=== PATIENT | female | born 1955 | race African-American/Black ===

== ENCOUNTER → 2017-01-20 | Outpatient (CLI) | payer OTHER ==
[2017-01-20 12:51] LABS: ABSOLUTE EOSINOPHILS # (AUTO) 0.1 10^3/uL (0.0-0.6); ABSOLUTE LYMPHOCYTES (AUTO) 1.5 10^3/uL (0.5-4.7); ABSOLUTE MONOCYTES (AUTO) 0.2 10^3/uL (0.1-1.4); ABSOLUTE NEUT (AUTO) 1.6 10^3/uL (1.7-8.2); BASOPHILS % (AUTO) 0.6 % (0-2); EOSINOPHILS % (AUTO) 2.7 % (0-6); LYMPHOCYTES % (AUTO) 43.7 % (13-45); MEAN CORPUSCULAR HEMOGLOBIN 32.5 pg (27.0-33.4); MEAN CORPUSCULAR HGB CONC 32.5 g/dL (32.0-36.0); MEAN CORPUSCULAR VOLUME 100 fl (80-97); MONOCYTES % (AUTO) 5.6 % (3-13); RED CELL DISTRIBUTION WIDTH 14.7 % (11.5-14.0); SEGMENTED NEUTROPHILS % (AUTO) 47.4 % (42-78); WHITE BLOOD COUNT 3.4 10^3/uL (4.0-10.5)
[2017-01-20 13:19] LABS: ALANINE AMINOTRANSFERASE 28 U/L (9-52); ALBUMIN 4.6 g/dL (3.5-5.0); ALKALINE PHOSPHATASE 131 U/L (38-126); ANION GAP 13 (5-19); ASPARTATE AMINO TRANSFERASE 45 U/L (14-36); BILIRUBIN,DIRECT 0.3 mg/dL (0.0-0.4); BILIRUBIN,TOTAL 0.4 mg/dL (0.2-1.3); BLOOD UREA NITROGEN 11 mg/dL (7-20); CARBON DIOXIDE 25 mmol/L (22-30); CHLORIDE 106 mmol/L (98-107); CHOLESTEROL 235.13 mg/dL (0-200); CREATININE RESULT 0.64 mg/dL (0.52-1.25); Direct HDL 108 mg/dL (>40); GLUCOSE 93 mg/dL (75-110); POTASSIUM 4.1 mmol/L (3.6-5.0); SODIUM 143.8 mmol/L (137-145); TOTAL PROTEIN 8.6 g/dL (6.3-8.2); TRIGLYCERIDES 146 mg/dL (<150)
[2017-01-20 13:30] LABS: DIRECT LDL 89 mg/dL (<100)
[2017-01-21 10:38] LABS: HEPATITIS C VIRUS AB <0.1 s/co ratio (0.0-0.9)
[2017-01-21 12:21] LABS: B-TYPE NATRIURETIC PEPTIDE 89.9 pg/mL (0.0-100.0)
== END ==
LOC: OD 11:34
DX: M10.9 Gout, unspecified (principal); R79.89 Other specified abnormal findings of blood chemistry; D64.9 Anemia, unspecified
CPT/HCPCS: 36415; 80053; 80061; 82607; 82746; 83036; 83880; 84443; 85025; 86317; 86708; 86709; 86803; 86804; 87340

== ENCOUNTER → 2017-06-05 | Outpatient (CLI) | payer OTHER ==
--- NOTE | 2017-06-05 14:55 | RADIOLOGY REPORT (SQ) ---
EXAM DESCRIPTION: UPPER GI/SM BOWEL COMPLETED DATE/TIME: 06/05/2017 10:33 am REASON FOR STUDY: ANOREXIA (R63.0) WITH WEIGHT LOSS (N63.4) R63.0 ANOREXIA R63.4 ABNORMAL WEIGHT L OSS COMPARISON: CT abdomen pelvis 01/14/2013 TECHNIQUE: Under fluoroscopic guidance, patient ingested effervescent granules followed by thick an d thin barium. Fluoroscopic spot images and routine radiographic images acquired and stored on PACS . Following evaluation of esophagus and stomach, additional barium administered with serial delayed ab dominal radiographs until colonic identification. Fluoroscopic images recorded of the terminal ileu m. 12 MM BARIUM TABLET GIVEN: Yes. No significant delay in passage. FLUOROSCOPY TIME: 3.3 minutes 17 fluoroscopic digital images saved to PACS. LIMITATIONS: None. FINDINGS: NEUROMUSCULAR COORDINATION OF SWALLOW: Normal. No aspiration. ESOPHAGEAL MOTILITY: Normal peristalsis. No esophageal spasm. ESOPHAGEAL MUCOSA: Normal mucosa without masses or ulceration. GASTRO-ESOPHAGEAL JUNCTION: No hiatal hernia or reflux. STOMACH: Normal without masses or ulcerations. GASTRIC OUTLET: No delay in emptying. Normal pylorus. DUODENAL BULB: Normal distention. No spasm or ulceration. DUODENUM: Mucosa normal. No extrinsic masses or malrotation. PROXIMAL SMALL BOWEL: Normal as visualized. JEJUNUM: Normal mucosal pattern. No dilatation, segmentation, strictures or masses. ILEUM: Normal mucosal pattern. No dilatation, segmentation, strictures or masses. TERMINAL ILEUM AND ILEO-CECAL VALVE: Normal mucosal pattern without cobble-stoning or stricture. Nor mal compression. PROXIMAL COLON: Incompletely imaged. No abnormality. NON-GI TRACT STRUCTURES: No significant finding. OTHER: No other significant finding. IMPRESSION: NORMAL DOUBLE CONTRAST BARIUM SWALLOW/UPPER GI SERIES/SMALL BOWEL SERIES. COMMENT: Quality ID [id number]: Final reports for procedures using fluoroscopy that document radiation exp osure indices, or exposure time and number of fluorographic images (if radiation exposure indices are not available) TECHNICAL DOCUMENTATION: JOB ID: [id number] [employer]- All Rights Reserved
== END ==
LOC: RAD 08:10
DX: R63.0 Anorexia (principal); R63.4 Abnormal weight loss
CPT/HCPCS: 74249

== ENCOUNTER → 2017-08-10 | Outpatient (CLI) | payer OTHER ==
--- NOTE | 2017-08-10 10:50 | RADIOLOGY REPORT (SQ) ---
EXAM DESCRIPTION: CT ABD/PELVIS ORAL ONLY COMPLETED DATE/TIME: 08/10/2017 9:17 am REASON FOR STUDY: ANOREXIA/R UPPER ABD PAIN R63.0 ANOREXIA R10.11 RIGHT UPPER QUADRANT PAIN F12.10 CANNABIS ABUSE, UNCOMPLICATED COMPARISON: CT abdomen pelvis 01/14/2013 TECHNIQUE: CT scan of the abdomen and pelvis performed without intravenous contrast. Patient drank oral contrast. Images reviewed with lung, soft tissue, and bone windows. Reconstructed coronal and sagittal MPR imag es reviewed. All images stored on PACS. All CT scanners at this facility use dose modulation, iterative reconstruction, and/or weight based d osing when appropriate to reduce radiation dose to as low as reasonably achievable (ALARA). [facility]: Dose Right [facility]: CareDose [facility]: Dose Right [facility]: Teradose 4D [facility]: Smart Technologies RADIATION DOSE: Up-to-date CT equipment and radiation dose reduction techniques were employed. CTDIv ol: 3.5 mGy. DLP: 180 mGy-cm.mGy. LIMITATIONS: None. FINDINGS: There is a thin rim of fluid between the liver and right hemidiaphragm, best shown on rand nal image 47 and axial images 16 through 24. There is a moderate amount of free cul-de-sac fluid. T his is a nonspecific finding. LOWER CHEST: No significant findings. No nodules or infiltrates. NON-CONTRASTED LIVER, SPLEEN, ADRENALS: Multiple hypodense liver lesions are present, similar compare to 2012 likely 1.9 cm hemangioma right lobe sub- diaphragmatic surface image 13, and hepatic cysts along the right lobe sub- diaphragmatic surface image 15, and left lobe liver near the falciform liga ment image 27. Spleen, adrenal glands unremarkable. PANCREAS: No masses. No peripancreatic inflammatory changes. GALLBLADDER: No identified stones by CT criteria. No inflammatory changes to suggest cholecystitis. RIGHT KIDNEY AND URETER: No suspicious masses. Assessment limited by lack of IV contrast. 12 mm cyst right lower pole kidney. No significant calcifications. No hydronephrosis or hydroureter. LEFT KIDNEY AND URETER: No suspicious masses. Assessment limited by lack of IV contrast. No signifi cant calcifications. No hydronephrosis or hydroureter. AORTA AND RETROPERITONEUM: No aneurysm. No retroperitoneal masses or adenopathy. BOWEL AND PERITONEAL CAVITY: No obvious masses or inflammatory changes. No free fluid. Patient drank oral contrast. No CT evidence of bowel obstruction. Few ascending colon diverticuli without CT sig ns of acute diverticulitis. APPENDIX: Normal. PELVIS, BLADDER, AND ABDOMINAL WALL:No abnormal masses. No free fluid. Bladder normal. Normal size u terus and ovaries. BONES: No significant findings. OTHER: No other significant finding. IMPRESSION: MRI of the right subphrenic fluid between the liver and diaphragm. Moderate amount of f ree cul-de-sac fluid. This is abnormal but nonspecific. No CT evidence of bowel obstruction. Ascending colon diverticuli without CT signs of diverticulitis. Normal appendix. COMMENT: Quality ID # [id number]: Final reports with documentation of one or more dose reduction techniques (e.g., Automated exposure control, adjustment of the mA and/or kV according to patient size, use of iterative reconstruction technique) TECHNICAL DOCUMENTATION: JOB ID: [id number] [employer]- All Rights Reserved
== END ==
LOC: RAD 09:00
DX: R63.0 Anorexia (principal); R10.11 Right upper quadrant pain; F12.10 Cannabis abuse, uncomplicated
CPT/HCPCS: 74176

== ENCOUNTER → 2017-09-22 | Outpatient (CLI) | payer OTHER ==
[2017-09-22 11:40] LABS: ABSOLUTE LYMPHOCYTES (AUTO) 1.6 10^3/uL (0.5-4.7); ABSOLUTE MONOCYTES (AUTO) 0.3 10^3/uL (0.1-1.4); ABSOLUTE NEUT (AUTO) 1.6 10^3/uL (1.7-8.2); BASOPHILS % (AUTO) 0.6 % (0-2); EOSINOPHILS % (AUTO) 1.3 % (0-6); HEMATOCRIT 34.4 % (36.0-47.0); HEMOGLOBIN 11.6 g/dL (12.0-15.5); HGB HCT DIFFERENCE 0.4; LYMPHOCYTES % (AUTO) 45.4 % (13-45); MEAN CORPUSCULAR HEMOGLOBIN 34.7 pg (27.0-33.4); MEAN CORPUSCULAR HGB CONC 33.6 g/dL (32.0-36.0); MEAN CORPUSCULAR VOLUME 103 fl (80-97); MONOCYTES % (AUTO) 7.2 % (3-13); RED BLOOD COUNT 3.33 10^6/uL (3.72-5.28); RED CELL DISTRIBUTION WIDTH 18.1 % (11.5-14.0); SEGMENTED NEUTROPHILS % (AUTO) 45.5 % (42-78); WHITE BLOOD COUNT 3.6 10^3/uL (4.0-10.5)
[2017-09-22 11:52] LABS: ALANINE AMINOTRANSFERASE 30 U/L (9-52); ALBUMIN 4.2 g/dL (3.5-5.0); ALKALINE PHOSPHATASE 132 U/L (38-126); ANION GAP 16 (5-19); ASPARTATE AMINO TRANSFERASE 46 U/L (14-36); BILIRUBIN,DIRECT 0.6 mg/dL (0.0-0.4); BILIRUBIN,TOTAL 0.6 mg/dL (0.2-1.3); BLOOD UREA NITROGEN 8 mg/dL (7-20); CALCIUM 9.3 mg/dL (8.4-10.2); CARBON DIOXIDE 22 mmol/L (22-30); CHLORIDE 109 mmol/L (98-107); CHOLESTEROL 223.54 mg/dL (0-200); CREATININE RESULT 0.71 mg/dL (0.52-1.25); Direct HDL 95 mg/dL (>40); GLUCOSE 91 mg/dL (75-110); POTASSIUM 4.3 mmol/L (3.6-5.0); SODIUM 147.1 mmol/L (137-145); TRIGLYCERIDES 197 mg/dL (<150)
[2017-09-22 12:02] LABS: DIRECT LDL 94 mg/dL (<100)
[2017-09-22 12:06] LABS: VLDL CHOLESTEROL 39.4 mg/dL (10-31)
== END ==
LOC: CCC 09:47
DX: R63.0 Anorexia (principal); R79.89 Other specified abnormal findings of blood chemistry
CPT/HCPCS: 36415; 80053; 80061; 83036; 84443; 85025

== ENCOUNTER → 2017-10-06 | Outpatient (CLI) | payer OTHER ==
[2017-10-06 11:58] LABS: FOLATE 6.32 ng/mL (>2.76)
== END ==
LOC: CCC 08:58
DX: D75.89 Other specified diseases of blood and blood-forming organs (principal)
CPT/HCPCS: 36415; 82607; 82746

== ENCOUNTER 2018-03-10 08:31 | Day surgery (SDC) | payer MEDICAID, OTHER ==
[~2018-03-10 08:31] MED LIST: DIPHENHYDRAMINE HCL 50 MG/ML VIAL ONE; EPINEPHRINE INJ 1 MG/10 ML DISP.SYRIN ONE; FENTANYL CITRATE INJ/PF 100 MCG/2 ML AMPUL ONE; FLUMAZENIL INJ 0.5 MG/5 ML VIAL ONE; GLUCAGON,HUMAN RECOMB 1 MG INJ ONE; NALOXONE HCL INJ/PF 0.4 MG/1 ML SDV ONE; ONDANSETRON HCL INJ/PF 4 MG/2 ML SDV ONE
[2018-03-10] MEDS: MIDAZOLAM 2 MG/2 ML INJ ONE ×2 (09:00→09:04)
--- NOTE | 2018-03-10 09:15 | Operative Report ---
Operative Report DATE OF SURGERY: 03/10/18 Operative Report: The risks benefits and alternatives of the procedure explained to the patient in detail and informed consent is obtained.A GIF Olympus video scope was inserted into the patient's mouth and hypopharynx, the esophagus is identified intubated and insufflated, the scope was then advanced through the esophagus stomach and duodenum, retroflexion maneuver is done, the esophagus stomach and first and second portions of the duodenum examined PREOPERATIVE DIAGNOSIS: Epigastric pain POSTOPERATIVE DIAGNOSIS: Gastritis status post biopsy. Esophagitis versus Cook's status post biopsy OPERATION: EGD with biopsy SURGEON: TAQUERIA BRINK ANESTHESIA: Moderate Sedation - 4 mg of Versed, 25 mcg of fentanyl. Conscious sedation monitoring time 30 minutes. TISSUE REMOVED OR ALTERED: As noted above. COMPLICATIONS: None. ESTIMATED BLOOD LOSS: None. INTRAOPERATIVE FINDINGS: As noted above. PROCEDURE: Patient tolerated procedure well. No immediate postprocedure complications are noted. Patient discharged in good condition. Discharge date 03/10/2018. Discharge diet: Regular. Discharge activity: Regular. 2-3 week follow-up to discuss findings. Patient is instructed to call the office or proceed to the emergency room should there be any further problems or questions.
[2018-03-10 10:14] VITALS: BP 102/63
== END 2018-03-10 10:55 | disposition home or self-care (01) ==
LOC: END 08:31
PROVIDERS: ATTEND Internal Medicine Gastroenterology
DX: K29.50 Unspecified chronic gastritis without bleeding (principal); K20.9 Esophagitis, unspecified; R32 Unspecified urinary incontinence; E78.00 Pure hypercholesterolemia, unspecified; M19.90 Unspecified osteoarthritis, unspecified site; Z79.899 Other long term (current) drug therapy; Z79.82 Long term (current) use of aspirin
CPT/HCPCS: 43239; 88342 ×2; 88305 ×2; J2250; J3010; J0171; J1200; J1610; J2310; J2405; J3490

== ENCOUNTER 2018-03-31 08:40 | Day surgery (SDC) | payer MEDICAID, OTHER ==
[~2018-03-31 08:40] MED LIST changes: -DIPHENHYDRAMINE HCL 50 MG/ML VIAL ONE; -EPINEPHRINE INJ 1 MG/10 ML DISP.SYRIN ONE; -FENTANYL CITRATE INJ/PF 100 MCG/2 ML AMPUL ONE; -FLUMAZENIL INJ 0.5 MG/5 ML VIAL ONE; -GLUCAGON,HUMAN RECOMB 1 MG INJ ONE; -NALOXONE HCL INJ/PF 0.4 MG/1 ML SDV ONE; -ONDANSETRON HCL INJ/PF 4 MG/2 ML SDV ONE; +PROPOFOL INJ 200 MG/20 ML VIAL IV ONE
[2018-03-31 10:21] VITALS: BP 159/80
--- NOTE | 2018-03-31 14:00 | Operative Report ---
Operative Report DATE OF SURGERY: 03/31/18 Operative Report: The risks benefits and alternatives of the procedure explained to the patient in detail and informed consent is obtained.A GIF Olympus video scope was inserted into the patient's mouth and hypopharynx, the esophagus is identified intubated and insufflated, the scope was then advanced through the esophagus stomach and duodenum, retroflexion maneuver is done, the esophagus stomach and first and second portions of the duodenum examined PREOPERATIVE DIAGNOSIS: Cook's esophagus POSTOPERATIVE DIAGNOSIS: Cook's esophagus status post ablation OPERATION: EGD with ablation SURGEON: TAQUERIA BRINK ANESTHESIA: LMAC TISSUE REMOVED OR ALTERED: None. COMPLICATIONS: None. ESTIMATED BLOOD LOSS: None. INTRAOPERATIVE FINDINGS: As noted above. PROCEDURE: Patient tolerated the procedure well. No immediate postprocedure complications are noted. Patient is discharged in good condition. Discharge date 03/31/2018. Discharge diet: Regular. Discharge activity: Regular. 2-3 week follow-up to discuss findings. Patient is instructed to call the office or proceed to the emergency room should there be any further problems or questions.
== END 2018-03-31 10:25 | disposition home or self-care (01) ==
LOC: END 08:40
PROVIDERS: ATTEND Internal Medicine Gastroenterology
DX: K22.719 Barrett's esophagus with dysplasia, unspecified (principal); K21.9 Gastro-esophageal reflux disease without esophagitis; M19.90 Unspecified osteoarthritis, unspecified site; E78.00 Pure hypercholesterolemia, unspecified; I10 Essential (primary) hypertension; I20.9 Angina pectoris, unspecified; N39.46 Mixed incontinence; Z79.899 Other long term (current) drug therapy; Z79.82 Long term (current) use of aspirin; Z88.8 Allergy status to other drugs, medicaments and biological substances
CPT/HCPCS: 43270; J2704; 731

== ENCOUNTER → 2018-04-22 | Outpatient (CLI) | payer MEDICAID, OTHER ==
--- NOTE | 2018-04-23 18:20 | WOMENS IMAGING REPORT ---
EXAM DESCRIPTION: BILAT SCREENING MAMMO W/CAD COMPLETED DATE/TIME: 04/22/2018 10:18 am REASON FOR STUDY: ROUTINE SCREENING;Z12.31 Z12.31 ENCNTR SCREEN MAMMOGRAM FOR MALIGNANT NEOPLASM OF BRYAN COMPARISON: None. TECHNIQUE: Standard craniocaudal and mediolateral oblique views of each breast recorded using digita l acquisition. LIMITATIONS: None. FINDINGS: No masses, calcifications or architectural distortion. No areas of suspicion. Read with the assistance of CAD. .[facility] - R2 Cenova Version 1.3 .[facility] - R2 Cenova Version 1.3 .[facility] - R2 Cenova Version 2.4 .[facility] [place]2 Cenova Version 2.4 .[facility] BEDS AT THE [facility] - R2 Knife [employer]isher Version 9.2 IMPRESSION: NORMAL MAMMOGRAM. BIRADS 1. BREAST DENSITY: c. The breasts are heterogeneously dense, which may obscure small masses. BIRAD: 1 NEGATIVE RECOMMENDATION: ROUTINE SCREENING COMMENT: The patient has been notified of the results by letter per SA requirements. Additional no tification policies are in place for contacting patient with suspicious or incomplete findings. Quality ID #225: The [employer] recommends an annual screening mammogram for women aged 40 years or over. This facility utilizes a reminder system to ensure that all patients receive reminder letters, and/or direct phone calls for appointments. This includes reminders for routine scr eening mammograms, diagnostic mammograms, or other Breast Imaging Interventions when appropriate. Th is patient will be placed in the appropriate reminder system. The [employer] (ACR) has developed recommendations for screening MRI of the breast s in certain patient populations, to be used in conjunction with mammography. Breast MRI surveillanc e may be appropriate for women with more than 20% lifetime risk of developing breast cancer as deter mined by genetic testing, significant family history of the disease, or history of mantle radiation f or Hodgkins Disease. ACR Practice Guidelines 2008. TECHNICAL DOCUMENTATION: FINDING NUMBER: (1) ASSESSMENT: (1) JOB ID: [id number] [employer]- All Rights Reserved Reading location - IP/workstation name: [email or web address]
== END ==
LOC: WI 09:54
PROVIDERS: ATTEND Nurse Practitioner Family
DX: Z12.31 Encounter for screening mammogram for malignant neoplasm of breast (principal)
CPT/HCPCS: 77067

== ENCOUNTER → 2020-10-09 | Outpatient (CLI) | payer SELFPAY ==
--- NOTE | 2020-10-09 12:22 | WOMENS IMAGING REPORT ---
EXAM DESCRIPTION: BILAT DIAGNOSTIC MAMMO W/CAD; U/S BREAST UNILATERAL, COMPL IMAGES COMPLETED DATE/TIME: 10/09/2020 11:07 am; 10/09/2020 11:55 am REASON FOR STUDY: N64.4 MASTODYNIA; RT BREAST PAIN N64.4 MASTODYNIA COMPARISON: 04/22/2018. EXAM PARAMETERS: Standard craniocaudal and mediolateral oblique views of each breast recorded using digital acquisition. Additional true lateral images of the right breast acquired with tomosynthesis. Read with the assistance of CAD: .[facility] - [employer] Version 9.2 LIMITATIONS: None. FINDINGS: RIGHT BREAST MASSES: No suspicious masses. CALCIFICATIONS: No new or suspicious calcifications. ARCHITECTURAL DISTORTION: None. ASYMMETRY: None noted. OTHER: No other significant findings. LEFT BREAST MASSES: No suspicious masses. CALCIFICATIONS: No new or suspicious calcifications. ARCHITECTURAL DISTORTION: None. ASYMMETRY: None noted. OTHER: No other significant finding. BREAST ULTRASOUND: TECHNIQUE: Static and dynamic grayscale images acquired of the entire right breast including the suba reolar region. Selected color Doppler images recorded. ELASTOGRAPHY PERFORMED: No. LIMITATIONS: None. FINDINGS: MASS: No mass identified. Normal glandular tissue. ELASTOGRAPHY CHARACTERISTICS:Not applicable. OTHER: No other significant finding. IMPRESSION: Stable bilateral mammogram. No worrisome mammographic or sonographic findings in the ri ght breast. BREAST DENSITY: b. There are scattered areas of fibroglandular density. BIRAD: ASSESSMENT: 1 Negative. RECOMMENDATION: RECOMMENDED FOLLOW UP: Birads 1 or 2: No breast imaging finding to explain the patie nt's presenting complaint. Further intervention should be based on the degree of clinical suspicion. SPECIFIC INTERVENTION/IMAGING/CONSULTATION RECOMMENDED:No additional intervention/ imaging/consultati on needed at this time. COMMUNICATION:The imaging findings were not discussed with the patient. Her referring provider has be en notified of the findings. COMMENT: The patient has been notified of the results by letter per MQSA requirements. Additional no tification policies are in place for contacting patient with suspicious or incomplete findings. Quality ID #225: The [employer] recommends an annual screening mammogram for women aged 40 years or over. This facility utilizes a reminder system to ensure that all patients receive reminder letters, and/or direct phone calls for appointments. This includes reminders for routine scr eening mammograms, diagnostic mammograms, or other Breast Imaging Interventions when appropriate. Th is patient will be placed in the appropriate reminder system. TECHNICAL DOCUMENTATION: FINDING NUMBER: (1) ASSESSMENT: (1) JOB ID: [id number] 2010 [employer]- All Rights Reserved Reading location - IP/workstation name: [email or web address]
--- NOTE | 2020-10-09 12:22 | WOMENS IMAGING REPORT ---
EXAM DESCRIPTION: BILAT DIAGNOSTIC MAMMO W/CAD; U/S BREAST UNILATERAL, COMPL IMAGES COMPLETED DATE/TIME: 10/09/2020 11:07 am; 10/09/2020 11:55 am REASON FOR STUDY: N64.4 MASTODYNIA; RT BREAST PAIN N64.4 MASTODYNIA COMPARISON: 04/22/2018. EXAM PARAMETERS: Standard craniocaudal and mediolateral oblique views of each breast recorded using digital acquisition. Additional true lateral images of the right breast acquired with tomosynthesis. Read with the assistance of CAD: .[facility] - [employer] Detail Sergeant Version 9.2 LIMITATIONS: None. FINDINGS: RIGHT BREAST MASSES: No suspicious masses. CALCIFICATIONS: No new or suspicious calcifications. ARCHITECTURAL DISTORTION: None. ASYMMETRY: None noted. OTHER: No other significant findings. LEFT BREAST MASSES: No suspicious masses. CALCIFICATIONS: No new or suspicious calcifications. ARCHITECTURAL DISTORTION: None. ASYMMETRY: None noted. OTHER: No other significant finding. BREAST ULTRASOUND: TECHNIQUE: Static and dynamic grayscale images acquired of the entire right breast including the suba reolar region. Selected color Doppler images recorded. ELASTOGRAPHY PERFORMED: No. LIMITATIONS: None. FINDINGS: MASS: No mass identified. Normal glandular tissue. ELASTOGRAPHY CHARACTERISTICS:Not applicable. OTHER: No other significant finding. IMPRESSION: Stable bilateral mammogram. No worrisome mammographic or sonographic findings in the ri ght breast. BREAST DENSITY: b. There are scattered areas of fibroglandular density. BIRAD: ASSESSMENT: 1 Negative. RECOMMENDATION: RECOMMENDED FOLLOW UP: Birads 1 or 2: No breast imaging finding to explain the patie nt's presenting complaint. Further intervention should be based on the degree of clinical suspicion. SPECIFIC INTERVENTION/IMAGING/CONSULTATION RECOMMENDED:No additional intervention/ imaging/consultati on needed at this time. COMMUNICATION:The imaging findings were not discussed with the patient. Her referring provider has be en notified of the findings. COMMENT: The patient has been notified of the results by letter per MQSA requirements. Additional no tification policies are in place for contacting patient with suspicious or incomplete findings. Quality ID #225: The [employer] recommends an annual screening mammogram for women aged 40 years or over. This facility utilizes a reminder system to ensure that all patients receive reminder letters, and/or direct phone calls for appointments. This includes reminders for routine scr eening mammograms, diagnostic mammograms, or other Breast Imaging Interventions when appropriate. Th is patient will be placed in the appropriate reminder system. TECHNICAL DOCUMENTATION: FINDING NUMBER: (1) ASSESSMENT: (1) JOB ID: [id number] 2010 [employer]- All Rights Reserved Reading location - IP/workstation name: [email or web address]
== END ==
LOC: WI 10:37
PROVIDERS: ATTEND Nurse Practitioner Family
DX: N64.4 Mastodynia (principal)
CPT/HCPCS: 76641; 77066